=== PATIENT | female | born 1955 | race Caucasian/White ===

== ENCOUNTER 2019-02-04 10:34 | Inpatient (IN) ==
[2019-02-04 12:47] LABS: ALLEN TEST YES; BE -1.8 mmoll (-3.0-3.0); BLOOD TYPE ARTERIAL; HCO3-(ACT) 23.3 mmoll (20.0-26.0); METHB 1.1 % (0.0-1.5); O2(CT) 18.8 mL/dL (15.0-23.0); O2HB 90.7 % (95.0-99.0); PCO2(98.6) 39 mmHg (35-45); PO2(98.6) 74 mmHg (60-100); SAMPLE BLOOD; SAO2 97.3 % (95.0-100.0); THB 14.7 g/dL (11.5-17.4); pH(98.6) 7.38 (7.35-7.45)
[2019-02-04 12:48] LABS: MODALITY ROOM AIR
[2019-02-04] MEDS ORDERED: NORCO-10 PO PRN (13:06)
[2019-02-04] MEDS ORDERED: ZOFRAN IV PRN (13:06)
[2019-02-04 13:13] LABS: HEMATOCRIT 34.9 % (37.0-47.0); HEMOGLOBIN 11.8 g/dL (12.0-16.0); MCH 30.4 PG (27-31); MCHC 33.8 g/dL (33-37); MCV 89.9 FL (81-99); MPV 8.7 FL (7.4-10.4); RBC 3.88 XMIL (4.2-5.4); RDW 13.7 % (11.5-14.5); WBC 14.99 X1000 (4.8-10.8)
--- NOTE | 2019-02-04 13:19 | Diag Imaging Result Doc PS360 ---
EXAM: CHEST-1 VIEW 02/04/2019 HISTORY: ACUTE BRONCHITIS TECHNIQUE: AP portable upright at 1307 COMMENT: There is COPD. There is no evidence of acute cardiac or pulmonary disease and compared to 06/28/2015 there has been no significant change in the appearance of the chest. IMPRESSION: No evidence of acute disease. Electronically signed by Anthony Henderson 02/04/2019 1:16 PM
[2019-02-04 13:32] LABS: AGAP 15; ALB/GLOB RATIO 1.1; ALBUMIN 3.5 g/dL (3.5-5.0); ALKALINE PHOSPHATASE 104 U/L (32-104); BUN 6 mg/dL (8-22); CALCIUM 8.5 mg/dL (8.8-10.2); CHLORIDE 93 mmol/L (98-107); COSMO 258; CREATININE 0.7 mg/dL (0.5-0.9); ESTIMATED GFR > 60; GLUCOSE 99 mg/dL (70-104); GOT 15 U/L (10-30); GPT 8 U/L (10-36); POTASSIUM 4.5 mmol/L (3.5-5.1); SODIUM 130 mmol/L (136-145); TCO2 22 mmol/L (25-35); TOTAL PROTEIN 6.7 g/dL (6.3-8.3)
--- NOTE | 2019-02-04 13:50 | EKG Report ---
Test Performed on : 02/04/2019 12:22:21 PM Test Reason : ACUTE BRONCHITIS Blood Pressure : / mmHG Vent. Rate : 095 BPM Atrial Rate : 095 BPM P-R Int : 154 ms QRS Dur : 078 ms QT Int : 332 ms P-R-T Axes : 059 034 064 degrees QTc Int : 417 ms Normal sinus rhythm. Normal ECG When compared with ECG of 28-JUN-2015 14:14, No significant change was found Confirmed by Tashi HARRIS, Abraham ([id number]) on 02/05/2019 8:35:02 AM
[2019-02-04] MEDS ORDERED: LEVAQUIN PO SCH (14:00)
[2019-02-04] MEDS: MOTRIN PO SCH (16:39)
[2019-02-04] MEDS: ZOVIRAX PO SCH (16:39)
[2019-02-04] MEDS: TESSALON PO SCH (16:39)
[2019-02-04] MEDS: AMBIEN PO PRN (23:01)
[2019-02-05] MEDS: PROTONIX PO SCH (06:04)
[2019-02-05] MEDS ORDERED: DUONEB (A & A) INH PRN (09:15)
[2019-02-05] MEDS: ZOVIRAX PO SCH ×3 (09:29→20:07)
[2019-02-05] MEDS: LEVAQUIN 750 MG/D5W 750 MG/150 ML IVPB IV SCH (09:29)
[2019-02-05] MEDS: TESSALON PO SCH ×3 (09:29→20:07)
[2019-02-05] MEDS: MOTRIN PO SCH ×3 (09:35→20:07)
--- NOTE | 2019-02-05 12:11 | PROGRESS NOTE ---
DATE: 02/05/2019 Ms. Boss is feeling somewhat better. Her flu test is negative. Chest x-ray is negative. CBC shows a leukocytosis. She had elevated levels of carboxyhemoglobin. She has been getting oxygen. Overall condition is unchanged. She is on IV lead smoke. We will continue the current management. She is on Levaquin and acyclovir for herpes simplex. -0 cc: Abraham Akins MD
--- NOTE | 2019-02-05 13:59 | HISTORY AND PHYSICAL ---
HISTORY OF PRESENT ILLNESS: Ms. Boss, who is a 63-year-old, white female, is admitted with a persistent cough and expectoration, shortness of breath, intermittent fever. She has been on oral antibiotics as an outpatient and outpatient therapy was a failure. Hence, she was admitted. The patient was very short of breath and persistently sick with severe cough and a sore throat. Ms. Boss had received a flu vaccine about a month ago. She has a known case of COPD, has mild coronary artery disease, severe anxiety state, severe degenerative disk disease in the lumbar and cervical spine. She had multiple surgeries including hysterectomy, cervical disk surgery. She has hardware in her cervical spine. She had a right-sided rotator cuff surgery, bilateral carpal tunnel surgery, and right elbow surgery also. She is a chronic smoker, smokes about a half a pack of cigarettes per day since she was age 17. She does not drink. ALLERGIES: She is allergic to ketorolac. REVIEW OF SYSTEMS: She is feeling extremely weak. PHYSICAL EXAMINATION: VITAL SIGNS: Reveal temperature 99 degrees Fahrenheit, pulse 100 per minute, respiratory rate 20 per minute, blood pressure 130/80. HEAD: Normocephalic. EYES: PERRLA. Fundus examination normal. NECK: Supple. JVP normal. ENT EXAMINATION: Unremarkable. There is no evidence of lymphadenopathy, thyroid enlargement, pedal edema, calf tenderness, anemia, cyanosis, or clubbing. Pedal pulses well-felt. BREAST EXAMINATION: Not done. CHEST: Normal inspection. LUNGS: Revealed bilateral expiratory wheezing. No rales audible. CARDIOVASCULAR: PMI in the normal position. Heart sounds are normal. No murmur, gallop, or rub noted. ABDOMEN: Nondistended. Hernial orifices normal. No guarding, rigidity, free fluid, masses, or organomegaly. Bowel sounds normal. RECTAL EXAMINATION: Deferred. PRESS SUPERVISOR: Higher functions normal. Cranial nerves normal. Motor and sensory system examination unremarkable. Deep tendon reflexes normal. Plantars downgoing. Skull and spine examination reveals painful movements of the cervical and lumbosacral spine. No cerebellar signs or signs of meningeal irritation. LOCOMOTOR AND SKIN EXAMINATION: Unremarkable. CLINICAL IMPRESSION: Acute bronchitis, patient not responding to outpatient therapy. cc: Abraham Akins MD
[2019-02-05] MEDS: AMBIEN PO PRN (20:07)
[2019-02-05] MEDS ORDERED: ELAVIL PO SCH (21:00)
[2019-02-06] MEDS: PROTONIX PO SCH (06:29)
[2019-02-06] MEDS: ZOVIRAX PO SCH (08:11)
[2019-02-06] MEDS: TESSALON PO SCH (08:11)
[2019-02-06] MEDS: MOTRIN PO SCH (08:11)
[2019-02-06] MEDS: LEVAQUIN 750 MG/D5W 750 MG/150 ML IVPB IV SCH (08:15)
--- NOTE | 2019-02-06 10:09 | PROGRESS NOTE ---
DATE: 02/06/2019 Ms. Boss is feeling better. Throat is much better. Her signs and symptoms of infection are significantly improved. Lungs do not reveal any wheezing. I feel like she can be discharged today. We will discharge her with a diagnosis of acute bronchitis. -5 cc: Abraham Akins MD
[2019-02-06 11:15] VITALS: BP 139/87
--- NOTE | 2019-02-07 10:03 | DISCHARGE SUMMARY ---
ADMISSION DATE: 02/04/2019 DISCHARGE DATE: 02/06/2019 DIAGNOSIS OF ADMISSION: Ms. Boss is a 63-year-old white female with a known case of mild COPD, who is a chronic smoker, was admitted with acute bronchitis and upper respiratory infection not responding to outpatient therapy with antibiotics. She had a chest x-ray which revealed emphysema. EKG was unremarkable. Flu test was negative. LABORATORY DATA: Revealed the presence of leukocytosis. White count was 14.99, hemoglobin 11.8, carboxy HB ]was 5.8. ABGs revealed a pH of 7.38, pCO2 of 39, PO2 was 74. Electrolytes were stable. BUN and creatinine were normal. Liver enzymes were normal. Flu test was negative. COURSE IN THE HOSPITAL: She was given IV antibiotics and respiratory therapy. She has improved significantly and she is afebrile. We will discharge her today. FINAL DIAGNOSES: 1. Acute bronchitis. 2. Acute upper respiratory infection. cc: Abraham Akins MD MTDD
== END 2019-02-06 11:50 | disposition home or self-care (01) | DRG 202 ==
LOC: DIRADM 10:34 → 4N 12:10
PROVIDERS: ADMIT Internal Medicine; ATTEND Internal Medicine